=== PATIENT | female | born 1970 | race Caucasian/White ===

== ENCOUNTER 2016-07-13 13:56 | Inpatient (IN) | payer MEDICAID, OTHER ==
[~2016-07-13] VITALS: Ht 160 cm; Wt 95.1 kg
[~2016-07-13 13:56] MED LIST: ALPR1TAB2 PO; METH10 PO; MORP-30 PO; PREG20SO PO; TRAZ-144 PO
[2016-07-13] MEDS ORDERED: ZOLPIDEM TARTRATE 10 MG TABLET PO PRN (17:00)
[2016-07-13 18:00] VITALS: BP 123/76
[2016-07-13] MEDS ORDERED: ACETAMINOPHEN 325 MG TABLET PO PRN (19:45)
[2016-07-13] MEDS ORDERED: IBUPROFEN 600 MG TABLET PO PRN (19:45)
[2016-07-13] MEDS: NICOTINE 21 MG/24 HOUR PATCH TD SCH (21:12)
[2016-07-13] MEDS: LORazepam 2 MG TABLET PO PRN (21:23)
[2016-07-14 00:49] VITALS: BP 110/66
[2016-07-14] MEDS: LORazepam 2 MG TABLET PO PRN ×3 (02:44→16:17)
[2016-07-14] MEDS: BACITRACIN 28.4 GM OINTMENT TP SCH ×2 (08:36→16:26)
[2016-07-14] MEDS: NICOTINE 21 MG/24 HOUR PATCH TD SCH (08:36)
[2016-07-14 08:52] LABS: BASOPHILS % (AUTO) 0.8 % (0.0-2.0); EOSINOPHILS % (AUTO) 2.5 % (1.0-6.0); HEMATOCRIT 33.8 % (36-46); HEMOGLOBIN 10.9 g/dL (12.0-16.0); LYMPHOCYTES % (AUTO) 45.5 % (22.0-44.0); MEAN CORPUSCULAR HGB CONC 32.3 G/dL (31.0-37.0); MEAN CORPUSCULAR VOLUME 78 fL (80-100); MONOCYTES # (AUTO) 0.3 K/uL (0.1-1.0); NEUTROPHILS % (AUTO) 46.2 % (40.0-70.0); PLATELET COUNT (AUTO) 229 K/uL (150-450); RED BLOOD CELL COUNT(AUTO) 4.35 MIL/uL (4.00-5.20); RED CELL DISTRIBUTION WIDTH 16.1 % (11.5-14.5); WHITE BLOOD COUNT (AUTO) 6.6 K/uL (4.5-11.0)
[2016-07-14 08:54] VITALS: BP 119/72
[2016-07-14 09:10] LABS: HEMOGLOBIN A1C 5.8 % (4.5-6.2)
[2016-07-14 09:17] LABS: ALANINE AMINOTRANSFERASE 32 U/L (12-78); ALBUMIN 3.4 g/dL (3.4-5.0); ANION GAP 8 mmol/L (8-16); ASPARTATE AMINOTRANSFERASE 30 U/L (15-37); BILIRUBIN,TOTAL 0.2 mg/dL (0.1-1.0); CALCIUM, TOTAL 8.1 mg/dL (8.8-10.5); CARBON DIOXIDE 29 mmol/L (22-29); CHLORIDE 106 mmol/L (98-107); CREATININE 0.74 mg/dL (0.60-1.30); GLOMERULAR FILTR. RATE CALC > 60 mL/min (>60); POTASSIUM 4.4 mmol/L (3.5-5.1); SODIUM SERUM 143 mmol/L (136-145); THYROID STIMULATING HORMONE 4.42 uIU/mL (0.36-3.74); UREA NITROGEN, BLOOD 13 mg/dL (7-18)
[2016-07-14 09:25] LABS: RBC MORPHOLOGY COMMENT ABNORMAL RBC MORPH
[2016-07-14 16:08] VITALS: BP 117/70
[2016-07-14] MEDS: TraZODone HCL 100 MG TABLET PO SCH (20:31)
[2016-07-15 06:18] VITALS: BP 122/74
[2016-07-15] MEDS: LORazepam 2 MG TABLET PO PRN (06:52)
[2016-07-15 08:12] VITALS: BP 111/84
[2016-07-15] MEDS: BACITRACIN 28.4 GM OINTMENT TP SCH ×2 (09:24→16:55)
[2016-07-15] MEDS: NICOTINE 21 MG/24 HOUR PATCH TD SCH (09:24)
[2016-07-15] MEDS ORDERED: IBUPROFEN 600 MG TABLET PO PRN (10:00)
[2016-07-15] MEDS ORDERED: ACETAMINOPHEN 500 MG TABLET PO PRN (10:00)
[2016-07-15] MEDS: METHADONE HCL 10 MG TABLET PO SCH ×2 (14:22→16:54)
[2016-07-15 16:20] VITALS: BP 117/64
[2016-07-15] MEDS: TraZODone HCL 100 MG TABLET PO SCH (20:57)
[2016-07-16 06:30] VITALS: BP 108/63
[2016-07-16] MEDS: METHADONE HCL 10 MG TABLET PO SCH ×2 (08:29→13:07)
[2016-07-16] MEDS: NICOTINE 21 MG/24 HOUR PATCH TD SCH (08:29)
[2016-07-16] MEDS: BACITRACIN 28.4 GM OINTMENT TP SCH (08:30)
[2016-07-16 09:02] VITALS: BP 114/68
[2016-07-16] MEDS: LORazepam 2 MG TABLET PO PRN (10:44)
[2016-07-16] MEDS ORDERED: CEPHALEXIN MONOHYDRATE 500 MG CAPSULE PO SCH (13:00)
[2016-07-16] MEDS ORDERED: CEPH500 PO (15:52)
[2016-07-16 16:21] VITALS: BP 105/69
== END 2016-07-16 16:30 | disposition home or self-care (01) | DRG 753 ==
LOC: B3A 16:54 → EDSTATUS 17:05
PROVIDERS: ADMIT Psychiatry & Neurology Child & Adolescent Psychiatry; ATTEND Psychiatry & Neurology Child & Adolescent Psychiatry
DX: F31.4 Bipolar disorder, current episode depressed, severe, without psychotic features (principal); F11.20 Opioid dependence, uncomplicated; G89.29 Other chronic pain; D64.9 Anemia, unspecified; E03.9 Hypothyroidism, unspecified; Z86.711 Personal history of pulmonary embolism; Z90.49 Acquired absence of other specified parts of digestive tract; Z90.710 Acquired absence of both cervix and uterus; Z90.721 Acquired absence of ovaries, unilateral; Z93.6 Other artificial openings of urinary tract status; Z98.890 Other specified postprocedural states; Z82.5 Family history of asthma and other chronic lower respiratory diseases
CPT/HCPCS: 83036; 84439; 84443